=== PATIENT | male | born 1990 ===

== ENCOUNTER 2020-07-19 11:46 | Emergency (ER) ==
[2020-07-19] MEDS ORDERED: Fluorescein Opthalmic Strip ONE (12:39)
[2020-07-19] MEDS ORDERED: Proparacaine 0.5% Opth 15 ML BOT ONE ×2 (12:39→13:02)
== END 2020-07-19 13:30 | disposition home or self-care (01) ==
LOC: ERS 11:46
DX: T15.01XA Foreign body in cornea, right eye, initial encounter (principal)
CPT/HCPCS: 65222